=== PATIENT | male | born 1990 | race Caucasian/White ===

== ENCOUNTER 2020-05-27 13:53 | Emergency (ER) | payer OTHER ==
[~2020-05-27] VITALS: Ht 193 cm; Wt 108.9 kg
[~2020-05-27 13:53] MED LIST: BENADRYL50 MG PO; MEDROL DOSEPAK4 MG PO
[2020-05-27] MEDS ORDERED: CEPHALEXIN500 M1 PO (15:24)
[2020-05-27] MEDS ORDERED: ANTIBIOTIC28.4 GM T (15:24)
[2020-05-27] MEDS ORDERED: IBU800 MG PO (16:21)
== END 2020-05-27 16:36 | disposition home or self-care (01) ==
LOC: ED 13:53
DX: S61.012A Laceration without foreign body of left thumb without damage to nail, initial encounter (principal); Z88.0 Allergy status to penicillin; Z88.2 Allergy status to sulfonamides; Z91.040 Latex allergy status; W22.8XXA Striking against or struck by other objects, initial encounter; Y93.89 Activity, other specified; Y92.89 Other specified places as the place of occurrence of the external cause; Y99.8 Other external cause status

== ENCOUNTER 2021-01-16 13:52 | Emergency (ER) | payer OTHER ==
[~2021-01-16] VITALS: Ht 193 cm; Wt 108.9 kg
[~2021-01-16 13:52] MED LIST changes: +ANTIBIOTIC28.4 GM T; +CEPHALEXIN500 M1 PO; +IBU800 MG PO
[2021-01-16 14:32] LABS: BILIRUBIN Negative (Negative); BLOOD 3+ (Negative); CLARITY Turbid (Clear); COLOR Dark Yellow (Yellow); GLUCOSE Negative (Negative); KETONE Trace (Negative); LEUKO ESTERASE 3+ (Negative); NITRITE Positive (Negative); PH 5.5 (4.5-8.0)
[2021-01-16 14:48] LABS: BACTERIA TRACE; RBC 51-100 rbc/hpf (0-2); WBC TNTC wbc/hpf (0-5)
[2021-01-16] MEDS ORDERED: CIPRO500 MG PO (15:36)
== END 2021-01-16 15:47 | disposition home or self-care (01) ==
LOC: ED 13:52
PROVIDERS: Emergency Medicine
DX: N39.0 Urinary tract infection, site not specified (principal); Z88.0 Allergy status to penicillin; Z88.2 Allergy status to sulfonamides

== ENCOUNTER 2021-04-14 22:17 | Emergency (ER) | payer OTHER ==
[~2021-04-14] VITALS: Ht 193 cm; Wt 108.9 kg
[~2021-04-14 22:17] MED LIST changes: +CIPRO500 MG PO
[2021-04-15] MEDS ORDERED: NAPROXEN250 MG PO (00:15)
== END 2021-04-15 00:38 | disposition home or self-care (01) ==
LOC: ED 22:17
DX: M79.89 Other specified soft tissue disorders (principal); M79.605 Pain in left leg; Z88.0 Allergy status to penicillin; Z88.2 Allergy status to sulfonamides

== ENCOUNTER → 2023-01-21 | Outpatient (CLI) | payer OTHER ==
[~2023-01-21] MED LIST changes: +NAPROXEN250 MG PO
[2023-01-21 10:10] LABS: BILIRUBIN Negative (Negative); BLOOD Negative (Negative); CLARITY Clear (Clear); COLOR Dark Yellow (Yellow); GLUCOSE Negative (Negative); KETONE Negative (Negative); LEUKO ESTERASE Negative (Negative); NITRITE Positive (Negative); SPECIFIC GRAVITY 1.015 (1.001-1.030)
[2023-01-21 10:11] LABS: BASO % 0.9 % (0.0-1.0); EOS # 0.1 10*3/uL (0.0-0.4); EOS % 2.8 % (1.0-4.0); HEMATOCRIT 48.6 % (42.0-52.0); LYMPH # 1.6 10*3/uL (1.3-4.4); LYMPH % 34.3 % (27.0-41.0); MEAN CORPUSCULAR HGB 29.2 pg (27.0-31.0); MEAN PLATELET VOLUME 9.5 fl (9.6-12.3); MONO # 0.3 10*3/uL (0.1-1.0); NEUT # 2.6 10*3/uL (2.3-7.9); PLATELET COUNT AUTOMATED 183 10*3/uL (130-400); RED BLOOD COUNT 5.65 10*6/uL (4.50-5.90); RED CELL DISTRI WIDTH 12.6 % (0-14.5); RETICULOCYTE % 1.09 % (0.50-2.50); WHITE BLOOD COUNT 4.6 10*3/uL (4.8-10.8)
[2023-01-21 10:34] LABS: EPITHELIAL CELLS 0-2; RBC 0-2 rbc/hpf (0-2)
[2023-01-21 11:35] LABS: ALKALINE PHOSPHATASE 34 U/L (46-116); BUN 8 mg/dl (9-23); CHLORIDE 102 mmol/L (98-107); CHOLESTEROL 152 mg/dL (<200); GAMMA GLUTAMYL TRANSPEPTIDASE 15 U/L (0-73); LDL CHOLESTEROL 105 mg/dL (9-159); POTASSIUM 4.2 mmol/L (3.4-5.1); SGPT/ALT 9 U/L (10-49); T3 UPTAKE 25.8 % (22.4-36.7); THYROID STIM HORMONE (HS) 1.053 uIU/ml (0.550-4.780); THYROXINE (T4) TOTAL 8.4 ug/dl (4.5-10.9); TOTAL PROTEIN 7.4 gm/dL (6.0-8.0); TRIGLYCERIDES 90 mg/dl (<150); URIC ACID 6.1 mg/dL (3.7-9.2)
[2023-01-21 11:54] LABS: VITAMIN D, 25-HYDROXY 36.1 ng/mL (30-100)
== END | disposition home or self-care (01) ==
LOC: LAB 09:16
PROVIDERS: ATTEND Family Medicine
DX: E78.5 Hyperlipidemia, unspecified (principal); E55.9 Vitamin D deficiency, unspecified; R79.89 Other specified abnormal findings of blood chemistry; R53.83 Other fatigue; R74.8 Abnormal levels of other serum enzymes

== ENCOUNTER 2023-02-28 22:29 | Emergency (ER) | payer OTHER ==
[~2023-02-28] VITALS: Ht 193 cm; Wt 108.9 kg
[2023-02-28 23:16] LABS: BASO % 0.7 % (0.0-1.0); EOS # 0.1 10*3/uL (0.0-0.4); EOS % 2.5 % (1.0-4.0); MEAN CELL VOLUME 83.5 fl (80.0-94.0); MEAN CORPUSCULAR HGB CONC 34.8 g/dl (33.0-37.0); MEAN PLATELET VOLUME 9.2 fl (9.6-12.3); MONO # 0.5 10*3/uL (0.1-1.0); MONO % 8.4 % (3.0-9.0); NEUT % 53.2 % (47.0-73.0); PLATELET COUNT AUTOMATED 183 10*3/uL (130-400); RED BLOOD COUNT 5.27 10*6/uL (4.50-5.90); RED CELL DISTRI WIDTH 12.3 % (0-14.5); WHITE BLOOD COUNT 5.6 10*3/uL (4.8-10.8)
[2023-02-28 23:29] LABS: BILIRUBIN Negative (Negative); BLOOD Negative (Negative); CLARITY Clear (Clear); COLOR Yellow (Yellow); GLUCOSE Negative (Negative); KETONE Negative (Negative); LEUKO ESTERASE Negative (Negative); NITRITE Negative (Negative)
[2023-02-28 23:47] LABS: ALKALINE PHOSPHATASE 39 U/L (46-116); BUN 7 mg/dl (9-23); CHLORIDE 104 mmol/L (98-107); POTASSIUM 3.6 mmol/L (3.4-5.1)
[2023-02-28 23:48] LABS: SGPT/ALT < 7 U/L (10-49)
[2023-02-28 23:52] LABS: RBC 0-2 rbc/hpf (0-2)
[2023-03-01] MEDS ORDERED: VIBRAMYCIN100 MG PO ×2 (00:13→00:17)
[2023-03-01] MEDS ORDERED: OXYBUTYNIN5 MG PO (00:17)
== END 2023-03-01 00:30 | disposition home or self-care (01) ==
LOC: ED 22:29
PROVIDERS: Emergency Medicine
DX: R30.0 Dysuria (principal); Z88.0 Allergy status to penicillin; Z88.2 Allergy status to sulfonamides

== ENCOUNTER → 2023-04-13 | Outpatient (CLI) | payer OTHER ==
[~2023-04-13] MED LIST changes: +OXYBUTYNIN5 MG PO; +VIBRAMYCIN100 MG PO
== END | disposition home or self-care (01) ==
LOC: CT 04-06 13:00
PROVIDERS: ATTEND Urology
DX: R16.1 Splenomegaly, not elsewhere classified (principal); K43.2 Incisional hernia without obstruction or gangrene; R30.0 Dysuria; K43.9 Ventral hernia without obstruction or gangrene

== ENCOUNTER → 2024-06-11 | Outpatient (CLI) | payer OTHER | END | disposition home or self-care (01) | LOC: US 06-04 12:30 | PROVIDERS: ATTEND Family Medicine | DX: I86.1 Scrotal varices (principal); N50.82 Scrotal pain ==

== ENCOUNTER → 2025-02-04 | Outpatient (CLI) | payer OTHER ==
[2025-02-04 10:05] LABS: BILIRUBIN 1+ (Negative); BLOOD Negative (Negative); CLARITY Clear (Clear); COLOR Dark Yellow (Yellow); GLUCOSE Negative (Negative); KETONE Negative (Negative); LEUKO ESTERASE Trace (Negative); NITRITE Positive (Negative); SPECIFIC GRAVITY 1.015 (1.001-1.030)
[2025-02-04 10:13] LABS: BACTERIA TRACE; RBC 0-2 rbc/hpf (0-2)
[2025-02-04 10:16] LABS: BASO # 0.1 10*3/uL (0.0-0.1); EOS # 0.2 10*3/uL (0.0-0.4); EOS % 3.1 % (1.0-4.0); HEMATOCRIT 46.6 % (42.0-52.0); MEAN CELL VOLUME 85.7 fl (80.0-94.0); MEAN CORPUSCULAR HGB 29.8 pg (27.0-31.0); MEAN CORPUSCULAR HGB CONC 34.8 g/dl (33.0-37.0); MEAN PLATELET VOLUME 9.6 fl (9.6-12.3); MONO # 0.4 10*3/uL (0.1-1.0); MONO % 7.4 % (3.0-9.0); NEUT % 59.1 % (47.0-73.0); PLATELET COUNT AUTOMATED 195 10*3/uL (130-400); RED BLOOD COUNT 5.44 10*6/uL (4.50-5.90); RED CELL DISTRI WIDTH 12.2 % (0-14.5); RETICULOCYTE % 1.01 % (0.50-2.50); WHITE BLOOD COUNT 5.1 10*3/uL (4.8-10.8)
[2025-02-04 10:31] LABS: ALKALINE PHOSPHATASE 37 U/L (46-116); BUN 16 mg/dl (9-23); CHLORIDE 103 mmol/L (98-107); CHOLESTEROL 157 mg/dL (<200); GAMMA GLUTAMYL TRANSPEPTIDASE 11 U/L (0-73); LDL CHOLESTEROL 103 mg/dL (9-159); POTASSIUM 4.4 mmol/L (3.4-5.1); SGPT/ALT 9 U/L (5-49); THYROXINE (T4) TOTAL 7.6 ug/dl (4.5-10.9); TOTAL PROTEIN 7.2 gm/dL (6.0-8.0); TRIGLYCERIDES 145 mg/dl (<150)
[2025-02-04 10:32] LABS: VITAMIN D, 25-HYDROXY 42.9 ng/mL (30-100)
== END | disposition home or self-care (01) ==
LOC: LAB 09:15
PROVIDERS: ATTEND Family Medicine
DX: E78.5 Hyperlipidemia, unspecified (principal); E55.9 Vitamin D deficiency, unspecified; R79.89 Other specified abnormal findings of blood chemistry; R53.83 Other fatigue

== ENCOUNTER → 2025-02-19 | Outpatient (CLI) | payer OTHER | END | disposition home or self-care (01) | LOC: US 07:25 | PROVIDERS: ATTEND Family Medicine | DX: K80.20 Calculus of gallbladder without cholecystitis without obstruction (principal); R10.84 Generalized abdominal pain; R10.2 Pelvic and perineal pain; R16.1 Splenomegaly, not elsewhere classified ==